=== PATIENT | female | born 1995 | race Caucasian/White ===

== ENCOUNTER 2020-10-23 19:21 | Emergency (ER) | payer OTHER, BC, SELFPAY ==
[2020-10-23 19:31] VITALS: BP 161/92; PULSE 135; RESP 21; TEMP 37.1; O2SAT 99; BMI 25.0
--- NOTE | 2020-10-23 19:39 | DI.RAD.S_ITS ---
PROCEDURE: XR CHEST 1V INDICATIONS: chest pain TECHNIQUE: One view of the chest was acquired. COMPARISON: None. FINDINGS: Surgical changes and devices: None. Lungs and pleura: Lungs are clear. No pleural effusions or pneumothorax. Mediastinum: Mediastinal contours appear normal. Heart size is normal. Bones and chest wall: No suspicious bony lesions. Overlying soft tissues appear unremarkable. IMPRESSION: Normal chest. Dictated by: Sravanthi Layton M.D. on 10/23/2020 at 20:07 Approved by: Sravanthi Layton M.D. on 10/23/2020 at 20:08
--- NOTE | 2020-10-23 19:51 | ED.CHESTPAIN ---
HPI - Chest Pain General Chief Complaint: Chest Pain Stated Complaint: heart racing couple of hours Time Seen by Provider: 10/23/20 19:34 Source: patient Mode of arrival: Ambulatory Limitations: no limitations History of Present Illness HPI narrative: Patient is a 24-year-old female who presents with heart palpitations. She says she has had this off and on for about 1-2 months. She was seen evaluated by a supervisor ditching she had a Holter monitor she has been told that she is fine. However when she sits up her heart rate goes up to 180 according to her Apple watch. In the emergency department her heart rate is at 120. while active her sitting but it does go down to below 100 with rest. She denies any fever or chills. She says that she is extremely dizzy lightheaded and feels like she might pass out she does not pass out. There is a working diagnosis of possible POTS. She is being established with a cupola tapper who started her on 100 mg of diltiazem but she does not feel like it is helping. Today she and her girlfriend got engaged she started feeling palpitations in her chest and they have not settled. MD complaint: chest pain Onset (ago): week(s) Duration: constant Onset: during rest Pain location: substernal Review of Systems Review of Systems Narrative: GENERAL: Denies chills, fatigue, malaise, fever, sweats, travel HEENT: Denies sinus pain, ear pain, sore throat, difficulty swallowing, neck pain RESPIRATORY: Denies dyspnea, cough, wheezing, hemoptysis, sputum. CARDIOVASCULAR: See HPI GASTROINTESTINAL: Denies nausea, vomiting, abdominal pain, diarrhea, constipation, melena. : Denies dysuria, frequency, incontinence, hematuria, urinary retention, flank pain. MUSCULOSKELETAL: Denies weakness, joint pain, or bony pain SKIN: No rash, no erythema, no pruritus NEUROLOGIC: Denies weakness, dizziness, headache, numbness, change in speech, confusion PSYCHIATRIC: No concerning psychosocial issues. 12 point review of systems is negative except for those stated above and HPI Patient History Medical History Patient denies medical problems Social History Smoking Status: Never smoker Smoking Status: Never smoker Substance Use Type: marijuana Exam Initial Vital Signs Initial Vital Signs: Vital Signs Temperature 98.7 F 10/23/20 19:31 Pulse Rate 135 H 10/23/20 19:31 Respiratory Rate 21 10/23/20 19:31 Blood Pressure 161/92 H 10/23/20 19:31 Pulse Oximetry 99 10/23/20 19:31 GENERAL: Well-appearing, well-nourished and in no acute distress. HEENT: Head atraumatic,EOMI, pupils reactive, face symmetric, moist mucous membranes CARDIOVASCULAR: Regular rate and rhythm without murmurs, rubs or gallops. RESPIRATORY: Breath sounds equal bilaterally, no wheezes rales or rhonchi. ABDOMEN: Soft, nontender. Normoactive bowel sounds all 4 quadrants. No guarding or rebound. EXTREMITIES: Normal range of motion, no clubbing or edema. Neurovascularly intact NEUROLOGICAL: Alert and oriented x4.Normal gait and speech. Cranial nerves II through XII grossly intact. SKIN: Warm, dry, no laceration, no petechiae, no rashes or lesions. Course Orders Ordered: ED Orders 10/23/20 19:35 Complete Blood Count AUTO DIFF Stat Comprehensive Metabolic Panel Stat D Dimer Stat Lipase Stat Partial Thromboplastin Time Stat Prothrombin Time INR Stat Thyroid Stimulating Hormone Stat Troponin & CK Cardiac Panel Stat 10/23/20 19:39 XR chest 1V Stat EKG-12 Lead Stat Discontinued Medications Sodium Chloride (Normal Saline 0.9%) 1,000 mls @ 1,000 mls/hr IV BOLUS ONE Stop: 10/23/20 20:59 Last Infusion: 10/23/20 21:03 Dose: 0 mls/hr Documented by: Admin: 10/23/20 20:09 Dose: 1,000 mls/hr Documented by: JULIANO Vital Signs Vital signs: Vital Signs - 8 hr 10/23/20 19:31 10/23/20 20:00 10/23/20 20:06 Temperature 98.7 F Pulse Rate 135 H 101 H 88 Pulse Rate [Orthostatic Lying] Pulse Rate [Orthostatic Sitting] Pulse Rate [Orthostatic Standing] Respiratory Rate 21 21 18 Blood Pressure 161/92 H 125/66 109/62 Blood Pressure [Orthostatic Lying] Blood Pressure [Orthostatic Sitting] Blood Pressure [Orthostatic Standing] Pulse Oximetry 99 99 100 10/23/20 20:11 12/26/20 20:30 10/23/20 21:00 Temperature Pulse Rate 89 85 Pulse Rate [Orthostatic Lying] 88 Pulse Rate [Orthostatic Sitting] 106 H Pulse Rate [Orthostatic Standing] 124 H Respiratory Rate 14 17 Blood Pressure 116/77 Blood Pressure [Orthostatic Lying] 109/62 Blood Pressure [Orthostatic Sitting] 119/73 Blood Pressure [Orthostatic Standing] 119/73 Pulse Oximetry 99 99 MDM - Chest Pain Lab Data Attestation: I reviewed the patient's lab results. Result diagrams: 10/23/20 19:35 10/23/20 19:35 Labs: Lab Results 10/23/20 10/23/20 10/23/20 Range/Units 19:35 19:35 19:35 WBC 8.9 (4.5-11.0) X10^3/uL RBC 4.46 (4.0-5.2) X10^6/uL Hgb 14.2 (12.0-16.0) g/dL Hct 42.6 (36-46) % MCV 95.5 (80-100) fL MCH 31.9 (26-34) PG MCHC 33.5 (30-36) % RDW 12.7 (11.6-14.8) % Plt Count 225 (150-400) X10^3/uL Neut % (Auto) 63.2 (50-75) % Lymph % (Auto) 31.5 (25-40) % [place] % (Auto) 4.8 (3-14) % Eos % (Auto) 0.2 L (2-4) % Baso % (Auto) 0.3 (0-2) % Neut # (Auto) 5600 (8170-7150) /uL Lymph # (Auto) 2800 (3736-3429) /uL [place] # (Auto) 400 (0-900) /uL Eos # (Auto) 0 (0-450) /uL Baso # (Auto) 0 (0-100) /uL PT 12.2 (10.1-12.7) SECONDS INR 1.1 (0.9-1.3) APTT 29 (26.4-36.2) SECONDS D-Dimer (<230) ng/mL Sodium 141 (137-145) mmol/L Potassium 3.2 L (3.4-5.1) mmol/L Chloride 109 H (98-107) mmol/L Carbon Dioxide 22 (22-32) mmol/L BUN 10 (7-17) mg/dL Creatinine 0.78 (0.52-1.04) mg/dL Estimated GFR > 60.0 (>60) mL/min BUN/Creatinine Ratio 12.8 (6-22) Glucose 117 H (70-100) mg/dL Calcium 10.1 (8.4-10.2) mg/dL Total Bilirubin 0.4 (0.2-1.3) mg/dL AST 22 (14-36) IU/L ALT 19 (<35) IU/L Alkaline Phosphatase 52 (38-126) U/L Total Creatine Kinase 90 (30-135) U/L CK-MB (CK-2) TNP CK-MB (CK-2) Rel Index TNP Troponin I < 0.012 (0.01-0.034) ng/mL Total Protein 8.6 H (6.3-8.2) g/dL Albumin 4.9 (3.5-5.0) g/dL Globulin 3.7 (1.7-4.1) g/dL Albumin/Globulin Ratio 1.3 (1.0-2.8) Lipase 121 (23-300) U/L TSH (0.47-4.68) uIU/mL 10/23/20 10/23/20 Range/Units 19:35 19:35 WBC (4.5-11.0) X10^3/uL RBC (4.0-5.2) X10^6/uL Hgb (12.0-16.0) g/dL Hct (36-46) % MCV (80-100) fL MCH (26-34) PG MCHC (30-36) % RDW (11.6-14.8) % Plt Count (150-400) X10^3/uL Neut % (Auto) (50-75) % Lymph % (Auto) (25-40) % [place] % (Auto) (3-14) % Eos % (Auto) (2-4) % Baso % (Auto) (0-2) % Neut # (Auto) (7769-6800) /uL Lymph # (Auto) (5869-9306) /uL [place] # (Auto) (0-900) /uL Eos # (Auto) (0-450) /uL Baso # (Auto) (0-100) /uL PT (10.1-12.7) SECONDS INR (0.9-1.3) APTT (26.4-36.2) SECONDS D-Dimer 219 (<230) ng/mL Sodium (137-145) mmol/L Potassium (3.4-5.1) mmol/L Chloride (98-107) mmol/L Carbon Dioxide (22-32) mmol/L BUN (7-17) mg/dL Creatinine (0.52-1.04) mg/dL Estimated GFR (>60) mL/min BUN/Creatinine Ratio (6-22) Glucose (70-100) mg/dL Calcium (8.4-10.2) mg/dL Total Bilirubin (0.2-1.3) mg/dL AST (14-36) IU/L ALT (<35) IU/L Alkaline Phosphatase (38-126) U/L Total Creatine Kinase (30-135) U/L CK-MB (CK-2) CK-MB (CK-2) Rel Index Troponin I (0.01-0.034) ng/mL Total Protein (6.3-8.2) g/dL Albumin (3.5-5.0) g/dL Globulin (1.7-4.1) g/dL Albumin/Globulin Ratio (1.0-2.8) Lipase (23-300) U/L TSH 0.853 (0.47-4.68) uIU/mL Imaging Data Chest x-ray: Radiologist's Impression: PROCEDURE: XR CHEST 1V INDICATIONS: chest pain TECHNIQUE: One view of the chest was acquired. COMPARISON: None. FINDINGS: Surgical changes and devices: None. Lungs and pleura: Lungs are clear. No pleural effusions or pneumothorax. Mediastinum: Mediastinal contours appear normal. Heart size is normal. Bones and chest wall: No suspicious bony lesions. Overlying soft tissues appear unremarkable. IMPRESSION: Normal chest. Dictated by: Sravanthi Layton M.D. on 10/23/2020 at 20:07 ECG Data Attestation: I personally reviewed and interpreted this ECG as follows: Prior ECG tracings: not available for review Interpretation: SINUS TACHYCARDIA RATE 123 P.R. INTERVAL 168 QRS [address] CHANGES OR T-WAVE INVERSIONS NO PRIORS TO COMPARE MDM Narrative Medical decision making narrative: Patient's heart rate actually improved significantly with normal saline. She was in the 90s and then down to 75. There is certainly some anxiety component with this. Possible postural tachycardia syndrome, however I think she needs further evaluation by Cardiology. Her cupola tapper started her on diltiazem which is not a medication for POTS. She is also currently in sinus rhythm and has no history of hypertension. I spoke with her about stopping this medication in till further evaluation in increasing her fluid intake. She is in agreeance to this. TSH is noted to be slightly low. On likely to be causing any sort of thyroid storm. This needs to be rechecked. Discharge Plan Departure Patient Disposition: Home Clinical Impression: Palpitations Instructions: DI for Palpitations Activity Restrictions/Additional Instructions: *You have been diagnosed with palpitation *What to do: At this time blood work is overall reassuring. At this time I do not think diltiazem is a medication that is appropriate for you. I recommend re-evaluated by Cardiology before continuing to take it. *Continue to take medications as directed *Follow up with your primary care provider in 2-3 days *Return to ER if you should have [such as] [or] any new, worsening or concerning symptoms
[2020-10-23 19:57] LABS: INR 1.1 (0.9-1.3); Prothrombin Time 12.2 SECONDS (10.1-12.7)
[2020-10-23 19:59] LABS: Add Manual Diff / Slide Review NO; Basophils Absolute Auto 0 /uL (0-100); Basophils Percent Auto 0.3 % (0-2); Eosinophils Absolute Auto 0 /uL (0-450); Eosinophils Percent Auto 0.2 % (2-4); Hematocrit 42.6 % (36-46); Hemoglobin 14.2 g/dL (12.0-16.0); Lymphocytes Absolute Auto 2800 /uL (1100-4500); Lymphocytes Percent Auto 31.5 % (25-40); Mean Corpuscular HGB Conc 33.5 % (30-36); Mean Corpuscular Hemoglobin 31.9 PG (26-34); Mean Corpuscular Volume 95.5 fL (80-100); Monocytes Absolute Auto 400 /uL (0-900); Monocytes Percent Auto 4.8 % (3-14); Neutrophils Absolute Auto 5600 /uL (1500-7000); Neutrophils Percent Auto 63.2 % (50-75); PTT Partial Thromboplastin Tim 29 SECONDS (26.4-36.2); Platelet Count 225 X10^3/uL (150-400); Red Blood Cell Count 4.46 X10^6/uL (4.0-5.2); Red Cell Distribution Width 12.7 % (11.6-14.8); White Blood Cell Count 8.9 X10^3/uL (4.5-11.0)
[2020-10-23 20:00] VITALS: BP 125/66; PULSE 101; RESP 21; O2SAT 99
[2020-10-23 20:01] LABS: Alanine Aminotransferase 19 IU/L (<35); Albumin 4.9 g/dL (3.5-5.0); Albumin Globulin Ratio 1.3 (1.0-2.8); Alkaline Phosphatase 52 U/L (38-126); Aspartate Aminotransferase 22 IU/L (14-36); BUN Creatinine Ratio 12.8 (6-22); Bilirubin Total 0.4 mg/dL (0.2-1.3); Blood Urea Nitrogen 10 mg/dL (7-17); Calcium 10.1 mg/dL (8.4-10.2); Carbon Dioxide 22 mmol/L (22-32); Chloride 109 mmol/L (98-107); Creatine Kinase 90 U/L (30-135); Estimated Glomerular Filt Rate > 60.0 mL/min (>60); Globulin 3.7 g/dL (1.7-4.1); Glucose 117 mg/dL (70-100); HEMOLYSIS < 15 (0-50); Lipase 121 U/L (23-300); Potassium 3.2 mmol/L (3.4-5.1); Sodium 141 mmol/L (137-145); Total Protein 8.6 g/dL (6.3-8.2)
[2020-10-23 20:06] VITALS: BP 109/62; PULSE 88; RESP 18; O2SAT 100
[2020-10-23] MEDS: SODIUM CHLORIDE 0.9% 1,000 ML 1000 ML IV (20:09)
[2020-10-23 20:11] VITALS: BP 109/62; BP 119/73; PULSE 106; PULSE 124; PULSE 88
[2020-10-23 20:12] LABS: Troponin I < 0.012 ng/mL (0.01-0.034)
[2020-10-23 20:22] LABS: D Dimer 219 ng/mL (<230)
[2020-10-23 20:30] VITALS: BP 116/77; PULSE 89; RESP 14; O2SAT 99
[2020-10-23 21:00] VITALS: PULSE 85; RESP 17; O2SAT 99
[2020-10-23 21:43] LABS: Thyroid Stimulating Hormone 0.853 uIU/mL (0.47-4.68)
== END 2020-10-23 21:04 | disposition home or self-care (01) ==
PROVIDERS: Emergency Provider Emergency Medicine
DX: R00.2 Palpitations (principal); R42 Dizziness and giddiness; R00.0 Tachycardia, unspecified; R07.9 Chest pain, unspecified
CPT/HCPCS: 36415; 71045; 80053; 82550; 83690; 84443; 84484; 85025; 85379; 85610; 85730; 93005; 96360; 99284